=== PATIENT | male | born 1950 | race Caucasian/White ===

== ENCOUNTER 2021-09-03 21:19 | Emergency (ER) | payer OTHER ==
[2021-09-03 21:56] LABS: HEMOGLOBIN 14.9 gm/dl (14.0-17.5); RED BLOOD COUNT 4.92 M/UL (4.20-5.50); WHITE BLOOD COUNT 5.1 K/UL (4.5-11.0)
[2021-09-03 22:15] LABS: BUN/CREATININE RATIO 22 (0-10)
[2021-09-03] MEDS ORDERED: PAXLOVID CO-PA1 EACH PO (23:32)
== END 2021-09-03 23:35 | disposition home or self-care (01) ==
LOC: ER1 21:19
PROVIDERS: Physician Assistant Medical
DX: U07.1 COVID-19 (principal); I10 Essential (primary) hypertension; E11.9 Type 2 diabetes mellitus without complications; Z71.6 Tobacco abuse counseling; F17.210 Nicotine dependence, cigarettes, uncomplicated; Z79.84 Long term (current) use of oral hypoglycemic drugs
CPT/HCPCS: 0240U; 71045; 80053; 85025; 99283

== ENCOUNTER 2021-10-30 18:07 | Emergency (ER) | payer OTHER ==
[~2021-10-30 18:07] MED LIST: PAXLOVID CO-PA1 EACH PO
[2021-10-30 19:56] LABS: HEMOGLOBIN 14.1 gm/dl (14.0-17.5); RED BLOOD COUNT 4.63 M/UL (4.20-5.50); WHITE BLOOD COUNT 9.5 K/UL (4.5-11.0)
[2021-10-30 20:18] LABS: BUN/CREATININE RATIO 25 (0-10)
== END 2021-10-30 23:35 | disposition home or self-care (01) ==
LOC: ER1 18:07
PROVIDERS: Emergency Medicine
DX: R00.0 Tachycardia, unspecified (principal); E11.9 Type 2 diabetes mellitus without complications; I10 Essential (primary) hypertension; F17.210 Nicotine dependence, cigarettes, uncomplicated
CPT/HCPCS: 71045; 80053; 82550; 82553; 84484; 85025; 93005; 99285